=== PATIENT | male | born 1975 | race Caucasian/White ===

== ENCOUNTER 2019-05-02 22:04 | Emergency (ER) | payer BC, OTHER ==
[2019-05-02] MEDS ORDERED: NA CHLORIDE 0.9% 1,000 ML ONE (23:15)
[2019-05-02 23:24] LABS: Absolute Lymphocytes (CBC) 1.9 K/uL (0.7-4.9); Basophils % 0.8 % (0-1.3); Hematocrit 45.3 % (39.6-49.0); MPV 9.8 fL (7.6-11.3); RBC Red Blood Cell Count 5.22 M/uL (4.33-5.43)
[2019-05-02 23:36] LABS: Potassium 3.7 mmol/L (3.5-5.1)
--- NOTE | 2019-05-03 00:27 | ER ---
Nurse's Notes Formerly [facility] Name: Jayant Beasley Age: 43 yrs Sex: Male : 1975 Arrival Date: 05/02/2019 Time: 22:10 Bed 15 Private MD: Ghanshyam Foster H Diagnosis: Syncope and collapse;Streptococcal pharyngitis Presentation: 05/02 22:26 Presenting complaint: Patient states: i was coughing while watching a movie and i got mg2 up to drink water and i passed out and hit the wall. i have been coughing for 10 days now. Transition of care: patient was not received from another setting of care. Onset of symptoms was April 2019. Risk Assessment: Do you want to hurt yourself or someone else? Patient reports no desire to harm self or others. Initial Sepsis Screen: Does the patient meet any 2 criteria? No. Patient's initial sepsis screen is negative. Does the patient have a suspected source of infection? No. Patient's initial sepsis screen is negative. Care prior to arrival: None. 22:26 Method Of Arrival: Ambulatory mg2 22:26 Acuity: AYAAN 3 mg2 Triage Assessment: 23:35 Neuro: Reports dizziness. wh Historical: - Allergies: 22:29 NKA; mg2 - Home Meds: 22:29 None [Active]; mg2 - PMHx: 22:29 None; mg2 - PSHx: 22:29 None; mg2 - Immunization history:: Flu vaccine is not up to date. - Social history:: Smoking status: Patient/guardian denies using tobacco, Patient uses alcohol, occasionally. Patient/guardian denies using street drugs, IV drugs. - Ebola Screening: : No symptoms or risks identified at this time. - Family history:: not pertinent. - Hospitalizations: : No recent hospitalization is reported. Screenin:29 Abuse screen: Denies threats or abuse. Denies injuries from another. Nutritional mg2 screening: No deficits noted. Tuberculosis screening: No symptoms or risk factors identified. Fall Risk Fall in past 12 months (25 points). Assessment: 23:34 General: Appears in no apparent distress. Behavior is calm, cooperative, appropriate wh for age. Pain: Denies pain. Neuro: Level of Consciousness is awake, alert, obeys commands, Oriented to person, place, time, situation, Appropriate for age Aids Nurse are equal bilaterally Moves all extremities. Gait is steady, Speech is normal, Facial symmetry appears normal, Pupils are PERRLA. Cardiovascular: Heart tones S1 S2 Rhythm is regular. Respiratory: Airway is patent Respiratory effort is even, unlabored, Respiratory pattern is regular, symmetrical, Breath sounds are clear bilaterally. GI: Abdomen is flat, non-distended. : No signs and/or symptoms were reported regarding the genitourinary system. EENT: No signs and/or symptoms were reported regarding the EENT system. Derm: Skin is intact, is healthy with good turgor, Skin is pink, warm \T\ dry. normal. Musculoskeletal: Circulation, motion, and sensation intact. 05/03 00:40 Reassessment: Patient appears in no apparent distress at this time. No changes from previously documented assessment. Patient and/or family updated on plan of care and expected duration. Pain level reassessed. Patient is alert, oriented x 3, equal unlabored respirations, skin warm/dry/pink. Vital Signs: 05/02 22:27 BP 132 / 83; Pulse 76; Resp 18; Temp 98.9; Pulse Ox 99% on R/A; Weight 95.25 kg; Height mg2 6 ft. 3 in. (190.50 cm); Pain 0/10; 23:37 BP 122 / 77; Pulse 64; Resp 18; Pulse Ox 98% on R/A; 05/03 00:30 BP 128 / 79; Pulse 74; Resp 18; Pulse Ox 99% on R/A; 05/02 22:27 Body Mass Index 26.25 (95.25 kg, 190.50 cm) mg2 ED Course: 05/02 22:10 Patient arrived in ED. es 22:10 Ghanshyam Foster DO is Private Physician. es 22:14 Frandy Mc MD is Attending Physician. rn 22:27 Triage completed. mg2 22:29 Arm band placed on. mg2 22:30 Patient has correct armband on for positive identification. mg2 22:44 Fredy Hall, RN is Primary Nurse. tr5 22:59 XRAY Chest Pa And Lat (2 Views) In Process Unspecified. EDMS 23:00 Report received from Fredy Hall RN. wh 23:09 CT Head Brain wo Cont In Process Unspecified. EDMS 23:20 Inserted saline lock: 20 gauge in right antecubital area, using aseptic technique. Blood collected. 05/03 00:45 No provider procedures requiring assistance completed. IV discontinued, intact, bleeding controlled, No redness/swelling at site. Administered Medications: 05/02 23:23 Drug: NS 0.9% 1000 ml Route: IV; Rate: 1000 ml; Site: right antecubital; 05/03 02:44 Follow up: Response: No adverse reaction; IV Status: Completed infusion 00:32 Drug: Augmentin 875 mg Route: PO; 02:43 Follow up: Response: No adverse reaction Point of Care Testing: Blood Glucose: 05/02 23:30 Blood Glucose: 96 mg/dL; Ranges: Outcome: 05/03 00:26 Discharge ordered by . rn 01:05 Discharged to home ambulatory, with family. 01:05 Condition: stable 01:05 Discharge instructions given to patient, family, Instructed on discharge instructions, follow up and referral plans. medication usage, POC Strep Throat Demonstrated understanding of instructions, follow-up care, medications, POC 01:18 Patient left the ED. Signatures: Dispatcher [employer] Leni Vallecillo Roman, MD MD rn [place], [facility] Richard Rodriguez RN RN mg2 Rodriguez, Tommie, RN RN tr5
--- NOTE | 2019-05-03 00:28 | EDPHYS ---
Physician Documentation [facility] Name: Jayant Beasley Age: 43 yrs Sex: Male : 1975 Arrival Date: 05/02/2019 Time: 22:10 Bed 15 Private MD: Ghanshyam Foster H ED Physician Frandy Mc HPI: 05/02 22:42 This 43 yrs old Male presents to ER via Ambulatory with complaints of rn Syncope, Cough, Vomiting, Hit head when he passed out. 22:42 The patient has experienced syncope. Onset: The symptoms/episode began/occurred just rn prior to arrival. Duration: This was a single episode. Associated injury: Head/face:. Current symptoms: Currently, the patient is not experiencing any symptoms. The patient has not experienced similar symptoms in the past. Reports has been coughing for 2 weeks, no fever, no hemoptysis, so sob/chest pain. Reports was coughing, stood up, got lightheaded, and passed out. Woke up on ground and noticed abrasion to forehead and right upper eyelid. No focal neuro complaints. Non-smoker. . Historical: - Allergies: 22:29 NKA; mg2 - Home Meds: 22:29 None [Active]; mg2 - PMHx: 22:29 None; mg2 - PSHx: 22:29 None; mg2 - Immunization history:: Flu vaccine is not up to date. - Social history:: Smoking status: Patient/guardian denies using tobacco, Patient uses alcohol, occasionally. Patient/guardian denies using street drugs, IV drugs. - Ebola Screening: : No symptoms or risks identified at this time. - Family history:: not pertinent. - Hospitalizations: : No recent hospitalization is reported. ROS: 22:42 Constitutional: Negative for fever, chills, and weight loss, Eyes: + right upper eyelid rn abrasion ENT: Negative for injury, pain, and discharge, Neck: Negative for injury, pain, and swelling, Cardiovascular: Negative for chest pain, palpitations, and edema, Respiratory: + cough, negative for sob or hemoptysis Abdomen/GI: Negative for abdominal pain, diarrhea, and constipation, + post-tussive emesis MS/Extremity: Negative for injury and deformity, Skin: Negative for injury, rash, and discoloration, Neuro: Negative for headache, weakness, numbness, tingling, and seizure. Exam: 22:42 Constitutional: This is a well developed, well nourished patient who is awake, alert, rn and in no acute distress. Ambulatory to room without difficulty or assistance. Head/Face: Normocephalic, 2 small abrasions to right forehead and upper eyelid, no laceration. Eyes: Pupils equal round and reactive to light, extra-ocular motions intact. Periorbital areas with no swelling, redness, or edema. ENT: MMM, no stridor Neck: Trachea midline, no thyromegaly or masses palpated, and no cervical lymphadenopathy. Supple, full range of motion without nuchal rigidity, or vertebral point tenderness. No Meningismus. Cardiovascular: Regular rate and rhythm, no murmur. No pulse deficits. Respiratory: Lungs have equal breath sounds bilaterally, clear to auscultation. No rales, rhonchi or wheezes noted. No increased work of breathing, no retractions or nasal flaring. Abdomen/GI: soft, non-tender MS/ Extremity: Pulses equal, no cyanosis. Neurovascular intact. Full, normal range of motion. Equal circumference. Neuro: Awake and alert, GCS 15, oriented to person, place, time, and situation. Cranial nerves II-XII grossly intact. Motor strength 5/5 in all extremities. Sensory grossly intact. Cerebellar exam normal. Normal gait. 23:22 ECG was reviewed by the Attending Physician. rn Vital Signs: 22:27 BP 132 / 83; Pulse 76; Resp 18; Temp 98.9; Pulse Ox 99% on R/A; Weight 95.25 kg; Height mg2 6 ft. 3 in. (190.50 cm); Pain 0/10; 23:37 BP 122 / 77; Pulse 64; Resp 18; Pulse Ox 98% on R/A; wh 05/03 00:30 BP 128 / 79; Pulse 74; Resp 18; Pulse Ox 99% on R/A; wh 05/02 22:27 Body Mass Index 26.25 (95.25 kg, 190.50 cm) mg2 MDM: 05/02 22:14 Patient medically screened. rn 05/03 00:24 Differential Diagnosis: cardiac arrhythmia, vasovagal episode, strep, pneumonia, rn dehydration. Data reviewed: vital signs, nurses notes, lab test result(s), EKG, radiologic studies, CT scan, plain films, and as a result, I will discharge patient. Test interpretation: by ED physician or midlevel provider: plain radiologic studies, CXR neg for pneumonia or acute infiltrate. Counseling: I had a detailed discussion with the patient and/or guardian regarding: the historical points, exam findings, and any diagnostic results supporting the discharge/admit diagnosis, lab results, radiology results, the need for outpatient follow up, to return to the emergency department if symptoms worsen or persist or if there are any questions or concerns that arise at home. Response to treatment: the patient's symptoms have markedly improved after treatment, the patient's symptoms have resolved after treatment, the patient's condition has returned to base line, the patient is now symptom free, patient is well hydrated. and as a result, I will discharge patient. Special discussion: I discussed with the patient/guardian in detail that at this point there is no indication for admission to the hospital. It is understood, however, that if the symptoms persist or worsen the patient needs to return immediately for re-evaluation. ED course: Pt improved to baseline, neg CXR, + strep, neg CT head and ECG, will dc home with abx for strep and cough medication. Recommend hydration.. 05/02 22:37 Order name: CBC with Diff; Complete Time: 00:14 05/02 22:37 Order name: Basic Metabolic Panel; Complete Time: 00:14 05/02 22:37 Order name: XRAY Chest Pa And Lat (2 Views) 05/02 22:37 Order name: CT Head Brain wo Cont 05/02 23:22 Order name: Strep; Complete Time: 00:20 05/02 23:22 Order name: Flu; Complete Time: 00:20 05/02 22:37 Order name: IV Start; Complete Time: 23:23 05/02 22:37 Order name: EKG; Complete Time: 22:38 05/02 22:37 Order name: EKG - Nurse/Tech; Complete Time: 23:23 rn EC/16 23:22 Rate is 65 beats/min. Rhythm is regular. QRS [place] is Normal. SC interval is normal. QRS rn interval is normal. QT interval is normal. No Q waves. T waves are Normal. No ST changes noted. Clinical impression: Normal ECG. Interpreted by me. Reviewed by me. Administered Medications: 23:23 Drug: NS 0.9% 1000 ml Route: IV; Rate: 1000 ml; Site: right antecubital; 05/03 02:44 Follow up: Response: No adverse reaction; IV Status: Completed infusion 00:32 Drug: Augmentin 875 mg Route: PO; 02:43 Follow up: Response: No adverse reaction Point of Care Testing: Blood Glucose: 05/02 23:30 Blood Glucose: 96 mg/dL; Ranges: Critical Glucose Levels:Adult <50 mg/dl or >400 mg/dl <40 mg/dl or >180 mg/dl Disposition: 05/03/19 00:26 Discharged to Home. Impression: Syncope and collapse, Streptococcal pharyngitis. - Condition is Stable. - Discharge Instructions: Strep Throat, Syncope. - Prescriptions for Augmentin 875- 125 mg Oral Tablet - take 1 tablet by ORAL route every 12 hours for 10 days; 20 tablet. Guaifenesin AC 10- 100 mg/5 mL Oral Liquid - take 10 milliliter by ORAL route every 4 hours As needed; 240 milliliter. - Medication Reconciliation Form, Thank You Letter, Antibiotic Education, Prescription Opioid Use form. - Follow up: Private Physician; When: As needed; Reason: Recheck today's complaints, Re-evaluation by your physician. - Problem is new. - Symptoms have improved. Signatures: Dispatcher [employer] EDFrandy Fountain MD MD rn [facility] Richard Rodriguez RN RN mg2 Corrections: (The following items were deleted from the chart) 05/03 01:18 00:26 05/03/2019 00:26 Discharged to Home. Impression: Syncope and collapse; Streptococcal pharyngitis. Condition is Stable. Forms are Medication Reconciliation Form, Thank You Letter, Antibiotic Education, Prescription Opioid Use. Follow up: Private Physician; When: As needed; Reason: Recheck today's complaints, Re-evaluation by your physician. Problem is new. Symptoms have improved. rn
[2019-05-03] MEDS ORDERED: AMOX/K CLAV 875 MG TAB ONE (00:29)
[2019-05-03 01:28] VITALS: TEMP 98.9
[2019-05-03 01:29] VITALS: BP 122/77; O2SAT 98
--- NOTE | 2019-05-03 08:09 | RAD REPORT ---
EXAM DESCRIPTION: RAD - Chest Pa And Lat (2 Views) - 05/02/2019 10:59 pm CLINICAL HISTORY: COUGH COMPARISON: January 2017 TECHNIQUE: PA and lateral views of the chest were obtained. FINDINGS: The lungs are clear of focal infiltrate. Interstitial pattern is mildly prominent but not clearly different from comparison. Minimal interstitial edema or infiltrate could be masked. Heart s ize is normal and central vasculature is within normal limits. No pleural effusion or pneumothorax s een. No acute bony finding noted. No aortic abnormality. IMPRESSION: No focal mass or consolidation. Prominent interstitial pattern not substantially different from comparison. Mild interstitial edema o r infiltrate could be masked.
--- NOTE | 2019-05-03 10:01 | EKG ---
Test Date: 2019-05-02 Test Time: 23:18:23 Public Relations Specialist: ALOK MEASUREMENT RESULTS: Intervals: Rate: 65 TN: 140 QRSD: 96 QT: 408 QTc: 424 [place]: P: 61 TN: 140 QRS: 85 T: 49 INTERPRETIVE STATEMENTS: Normal sinus rhythm Normal ECG Compared to ECG 01/17/2017 06:50:37 ST (T wave) deviation no longer present Early repolarization no longer present Electronically Signed On 05-03-19 10:00:53 VICE PRESIDENT QUALITY by Antwan Beauchamp
--- NOTE | 2019-05-04 12:37 | RAD REPORT ---
EXAM DESCRIPTION: CT - Head Brain Wo Cont - 05/03/2019 12:35 am CLINICAL HISTORY: 43 years Male syncope, head injury TECHNIQUE: Contiguous axial CT images obtained through the brain without IV contrast. Coronal and sa gittal reformats also provided. This CT exam was performed according to our departmental dose-optimization program, which includes on e or more of the following dose reduction techniques: automated exposure control, adjustment of the m A and/or kV according to patient size, and/or use of iterative reconstruction technique. COMPARISON: No prior exams provided for comparison. FINDINGS: There is no intracranial hemorrhage, extraaxial collection, or acute transcortical infarct ion. The ventricles are normal in size and contour without mass-effect or midline shift. Osseous structures are normal. The paranasal sinuses and mastoid air cells are clear. IMPRESSION: No acute intracranial abnormalities. Electronically signed by: Kita Hatfield MD 05/02/2019 11:09 PM INSTRUMENT MAKER Due to temporary technical issues with the PACS/Fluency reporting system, reports are being signed by the in house radiologist as a courtesy to ensure prompt reporting. The interpreting radiologist is f ully responsible for the content of the report.
== END 2019-05-03 01:18 | disposition home or self-care (01) ==
LOC: ER 22:04
DX: J02.0 Streptococcal pharyngitis (principal)
CPT/HCPCS: 96361; 93005; 85025; 80048; 36415; 87081; 87804 ×2; 70450; 71046; 96360; 99284; J7030